=== PATIENT | female | born 1990 | race Caucasian/White ===

== ENCOUNTER 2021-07-23 13:00 | Emergency (ER) | payer BC ==
--- NOTE | 2021-07-23 15:54 | EDM.PDOC ---
ED HPI GENERAL MEDICAL PROBLEM - General Chief Complaint: ENT Problem Stated Complaint: SORE THROAT Time Seen by Provider: 07/23/21 15:44 Source of Information: Reports: Patient History Limitations: Reports: No Limitations - History of Present Illness INITIAL COMMENTS - FREE TEXT/NARRATIVE: 30-year-old female no past medical history presents with sore throat, nonproductive cough, runny nose x2 to 3 days. She is not noted any fevers. She notes that her young son has similar symptoms. She is concerned that she might have a Covid infection versus streptococcal pharyngitis. Throat Pain Score (Numeric/FACES): 6 - Related Data Allergies Allergy/AdvReac Type Severity Reaction Status Date / Time Penicillins Allergy Mild Hives Verified 07/23/21 15:32 Home Meds: Home Meds Levothyroxine [Synthroid] 50 mcg PO ACBREAKFAST 07/23/21 [History] Social & Family History - Caffeine Use Caffeine Use: Reports: None - Recreational Drug Use Recreational Drug Use: No ED ROS GENERAL - Review of Systems Review Of Systems: Comprehensive ROS is negative, except as noted in HPI. ED EXAM, GENERAL - Physical Exam Exam: See Below Exam Limited By: No Limitations General Appearance: Alert, WD/WN, No Apparent Distress Ears: Hearing Grossly Normal Throat/Mouth: Normal Inspection, Normal Oropharynx, Normal Voice, No Airway Compromise Head: Atraumatic, Normocephalic Neck: Normal Inspection Respiratory/Chest: No Respiratory Distress, Lungs Clear, Normal Breath Sounds, No Accessory Muscle Use Cardiovascular: Normal Peripheral Pulses, Regular Rate, Rhythm Extremities: Normal Inspection Neurological: Alert, Normal Cognition, Normal Gait Psychiatric: Normal Affect, Normal Mood Skin Exam: Warm, Dry, Intact, Normal Color Course - Vital Signs Last Recorded V/S: Last Vital Signs Temp 97.7 F 07/23/21 15:27 Pulse 85 07/23/21 15:27 Resp 18 07/23/21 15:27 BP 122/75 07/23/21 15:27 Pulse Ox 98 07/23/21 15:27 - Orders/Labs/Meds Orders: Active Orders 24 hr Category Date Time Status dexAMETHasone [Decadron] Med 07/23/21 17:51 Once 6 mg IVPUSH ONETIME ONE Labs: Laboratory Tests 07/23/21 07/23/21 Range/Units 16:20 16:20 SARS-CoV-2 RNA (GETACHEW) NEGATIVE (NEGATIVE) Group A Strep (PCR) NOT DETECTED (NOT DETECT) - Re-Assessments/Exams Free Text/Narrative Re-Assessment/Exam: 07/23/21 15:53 We will get strep test, will get Covid test. 07/23/21 17:51 Covid and strep negative. Will treat for viral pharyngitis with Decadron. Recommend PMD follow-up. Departure - Departure Time of Disposition: 17:51 Disposition: Home, Self-Care 01 Condition: Good Clinical Impression: Pharyngitis Qualifiers: Pharyngitis/tonsillitis etiology: unspecified etiology Qualified Code(s): J02.9 - Acute pharyngitis, unspecified - Discharge Information Instructions: Pharyngitis Referrals: Hao Baron MD [Primary Care Provider] - Forms: ED Department Discharge Additional Instructions: The following information is given to patients seen in the emergency department who are being discharged to home. This information is to outline your options for follow-up care. We provide all patients seen in our emergency department with a follow-up referral. The need for follow-up, as well as the timing and circumstances, are variable depending upon the specifics of your emergency department visit. If you don't have a primary care physician on staff, we will provide you with a referral. We always advise you to contact your personal physician following an emergency department visit to inform them of the circumstance of the visit and for follow-up with them and/or the need for any referrals to a consulting specialist. The emergency department will also refer you to a specialist when appropriate. This referral assures that you have the opportunity for follow-up care with a specialist. All of these measure are taken in an effort to provide you with optimal care, which includes your follow-up. Under all circumstances we always encourage you to contact your private physician who remains a resource for coordinating your care. When calling for follow-up care, please make the office aware that this follow-up is from your recent emergency room visit. If for any reason you are refused follow-up, please contact the [facility] Emergency Department at and asked to speak to the emergency department charge nurse. Please follow up with your primary care physician. If you do not have a primary care physician, see below: [facility] [address] [place] [id number] [facility] [address] [place] [address] [facility] [address], [place] [address] Sepsis Event Note (ED) - Focused Exam Vital Signs: Vital Signs Temp Pulse Resp BP Pulse Ox 07/23/21 15:27 97.7 F 85 18 122/75 98 - My Orders Last 24 Hours: My Active Orders 07/23/21 17:51 dexAMETHasone [Decadron] 6 mg IVPUSH ONETIME ONE - Assessment/Plan Last 24 Hours: My Active Orders 07/23/21 17:51 dexAMETHasone [Decadron] 6 mg IVPUSH ONETIME ONE
[2021-07-23] MEDS ORDERED: Dexamethasone 4 MG/ML SDV IVPUSH ONE (17:51)
== END 2021-07-23 18:18 | disposition home or self-care (01) ==
LOC: MW.ED 13:00
DX: J02.9 Acute pharyngitis, unspecified (principal); Z88.0 Allergy status to penicillin; Z20.822 Contact with and (suspected) exposure to COVID-19
CPT/HCPCS: 87635; 87651; 96374; 99283; J1100; U0002

== ENCOUNTER 2021-08-17 12:31 | Emergency (ER) | payer BC ==
--- NOTE | 2021-08-17 13:17 | EDM.PDOC ---
ED HPI GENERAL MEDICAL PROBLEM - General Chief Complaint: Bite:Animal, Insect Stated Complaint: DOG BITE Time Seen by Provider: 08/17/21 12:42 Source of Information: Reports: Patient History Limitations: Reports: No Limitations - History of Present Illness INITIAL COMMENTS - FREE TEXT/NARRATIVE: 30-year-old female presents for dog bite. Patient was bit by a stray dog last night. She took 1 dose of Bactrim prior to arrival. She notes swelling and pain in the area. Her tetanus is not up-to-date. right hand Pain Score (Numeric/FACES): 0 - Related Data Allergies Allergy/AdvReac Type Severity Reaction Status Date / Time Penicillins Allergy Mild Hives Verified 08/17/21 13:14 Home Meds: Home Meds Levothyroxine [Synthroid] 50 mcg PO ACBREAKFAST 07/23/21 [History] Doxycycline [Vibramycin] 100 mg PO BID 14 Days #28 cap 08/17/21 [Rx] Social & Family History - Caffeine Use Caffeine Use: Reports: None ED ROS GENERAL - Review of Systems Review Of Systems: Comprehensive ROS is negative, except as noted in HPI. ED EXAM, ANIMAL BITE - Physical Exam Exam: See Below Exam Limited By: No Limitations General Appearance: Alert, WD/WN, No Apparent Distress Nose: Normal Inspection Throat/Mouth: Normal Voice, No Airway Compromise Head: Atraumatic, Normocephalic Neck: Normal Inspection Respiratory/Chest: No Respiratory Distress, Lungs Clear Cardiovascular: Normal Peripheral Pulses, Regular Rate, Rhythm Extremities: Other (dog bite to R hand with some surrounding erythema; open wound 1-cm not ammenable to lac repair) Neurological: Alert Psychiatric: Normal Affect, Normal Mood Skin Exam: Normal Color, Warm/Dry Course - Vital Signs Last Recorded V/S: Last Vital Signs Temp 97.1 F 08/17/21 13:14 Pulse 60 08/17/21 13:14 Resp 18 08/17/21 13:14 BP 117/65 08/17/21 13:14 Pulse Ox 98 08/17/21 13:14 - Re-Assessments/Exams Free Text/Narrative Re-Assessment/Exam: 08/17/21 13:30 I do not believe patient meets qualifications for rabies immunization. Will give tetanus vaccination. Will give doxycycline prescription as patient is allergic to penicillins. Departure - Departure Time of Disposition: 13:25 Disposition: Home, Self-Care 01 Condition: Good Clinical Impression: Dog bite Qualifiers: Encounter type: initial encounter Qualified Code(s): W54.0XXA - Bitten by dog, initial encounter - Discharge Information Instructions: Animal Bite, Adult, [id number] Referrals: PCP,None [Primary Care Provider] - Forms: ED Department Discharge Additional Instructions: You have been prescribed a medication that helps prevent infection in the setting of a dog bite. You were also given a tetanus vaccination. The following information is given to patients seen in the emergency department who are being discharged to home. This information is to outline your options for follow-up care. We provide all patients seen in our emergency department with a follow-up referral. The need for follow-up, as well as the timing and circumstances, are variable depending upon the specifics of your emergency department visit. If you don't have a primary care physician on staff, we will provide you with a referral. We always advise you to contact your personal physician following an emergency department visit to inform them of the circumstance of the visit and for follow-up with them and/or the need for any referrals to a consulting s pecialist. The emergency department will also refer you to a specialist when appropriate. This referral assures that you have the opportunity for follow-up care with a specialist. All of these measure are taken in an effort to provide you with optimal care, which includes your follow-up. Under all circumstances we always encourage you to contact your private physician who remains a resource for coordinating your care. When calling for follow-up care, please make the office aware that this follow-up is from your recent emergency room visit. If for any reason you are refused follow-up, please contact the [facility] Emergency Department at and asked to speak to the emergency department charge nurse. Please follow up with your primary care physician. If you do not have a primary care physician, see below: [facility] [address] [place] [phone] [facility] [address] [place] [address] [facility] [address] [place] [id number] Sepsis Event Note (ED) - Focused Exam Vital Signs: Vital Signs Temp Pulse Resp BP Pulse Ox 08/17/21 13:14 97.1 F 60 18 117/65 98
[2021-08-17] MEDS ORDERED: Diphtheria,Pertussis(Acell),Tetanus Vaccine 0.5 ML Syringe IM ONE (13:25)
[2021-08-17] MEDS ORDERED: Diphtheria,Pertussis(Acell),Tetanus Vaccine 0.5 ML Syringe ONE (13:55)
== END 2021-08-17 14:03 | disposition home or self-care (01) ==
LOC: MW.ED 12:31
DX: S61.451A Open bite of right hand, initial encounter (principal); Z23 Encounter for immunization; Z88.0 Allergy status to penicillin; W54.0XXA Bitten by dog, initial encounter
CPT/HCPCS: 90471; 90715; 99283

== ENCOUNTER 2023-03-02 16:11 | Emergency (ER) | payer BC, MEDICAID ==
[2023-03-02] MEDS ORDERED: traMADol 50 MG Tab PO ONE (16:37)
== END 2023-03-02 17:39 | disposition home or self-care (01) ==
LOC: MW.ED 16:11
DX: S90.31XA Contusion of right foot, initial encounter (principal); S90.32XA Contusion of left foot, initial encounter; Z88.0 Allergy status to penicillin; W22.8XXA Striking against or struck by other objects, initial encounter
CPT/HCPCS: 73630; 99283; A9270

== ENCOUNTER 2023-06-10 12:52 | Emergency (ER) | payer BC ==
[2023-06-10] MEDS ORDERED: Phenazopyridine 200 MG Tab PO ONE (13:22)
[2023-06-10] MEDS ORDERED: Cefdinir 300 MG Cap PO ONE (13:22)
[2023-06-10 13:48] LABS: APPEARANCE,URINE SLT CLOUDY; BILIRUBIN,URINE NEGATIVE (NEGATIVE); COLOR,URINE YELLOW; GLUCOSE,URINE NEGATIVE (NEGATIVE); KETONES,URINE NEGATIVE (NEGATIVE); LEUKOCYTE ESTERASE,URINE MODERATE (NEGATIVE); NITRITE,URINE NEGATIVE (NEGATIVE); OCCULT BLOOD,URINE LARGE (NEGATIVE); PROTEIN,URINE 30 mg/dL (NEGATIVE); UROBILINOGEN,URINE 0.2 EU/dL (<2.0)
[2023-06-10 13:57] LABS: AMORPHOUS SEDIMENT,URINE OCCASIONAL (NEGATIVE); BACTERIA,URINE MODERATE (NEGATIVE); EPITHELIAL CELLS,URINE FEW (NONE-FEW); MUCUS,URINE FEW (NONE-MOD); SQUAMOUS EPITHELIAL CELLS,UR FEW; WBC,URINE 20-30 (0-5/HPF)
== END 2023-06-10 13:41 | disposition home or self-care (01) ==
LOC: MW.ED 12:52
DX: N30.91 Cystitis, unspecified with hematuria (principal); Z88.0 Allergy status to penicillin
CPT/HCPCS: 81001; 81025; 99283; A9270

== ENCOUNTER 2024-09-10 00:59 | Emergency (ER) | payer SELFPAY | END 2024-09-10 05:29 | disposition home or self-care (01) | LOC: MW.ED 00:59 | DX: F10.129 Alcohol abuse with intoxication, unspecified (principal); R45.851 Suicidal ideations; Z79.899 Other long term (current) drug therapy; Z88.0 Allergy status to penicillin; Z75.8 Other problems related to medical facilities and other health care | CPT/HCPCS: 99283; 99285 ==